=== PATIENT | female | born 1945 | race Caucasian/White ===

== ENCOUNTER 2016-12-10 10:32 | Emergency (ER) | payer MEDICARE, OTHER ==
[2016-12-10 10:51] VITALS: BP 136/88
[2016-12-10] MEDS ORDERED: Acetaminophen 325 MG Tab PO ONE (11:48)
--- NOTE | 2016-12-10 11:50 | EDM.PDOC ---
ED HPI GENERAL MEDICAL PROBLEM - General Chief Complaint: Upper Extremity Injury/Pain Stated Complaint: Right shoulder pain Time Seen by Provider: 12/10/16 11:10 Source of Information: Reports: Patient, RN Notes Reviewed History Limitations: Reports: No Limitations - History of Present Illness INITIAL COMMENTS - FREE TEXT/NARRATIVE: 71 year old female presents to the ED with complaints of right shoulder pain. She had a total shoulder replacement and rotator cuff repair with Dr. Diop on 09/02/16. She was doing well and was discharged from Physical therapy last week. This morning she awoke with right shoulder pain. She has pain with movement. She's had no injury and does not feel she slept on it wrong. She says the shoulder was fine yesterday. She reports full range of motion as of yesterday. She denies fall or overuse. She's been performing exercises per PT recommendations. She has not notified Dr. Diop. She has been taking Tylenol for pain but has not required any for quite some time. Right Shoulder Pain Score (Numeric/FACES): 8 - Related Data Allergies Allergy/AdvReac Type Severity Reaction Status Date / Time No Known Allergies Allergy Verified 12/10/16 10:46 Home Meds: Home Meds Hydrochlorothiazide 25 mg PO DAILY 12/10/16 [History] Losartan [Cozaar] 100 mg PO DAILY 12/10/16 [History] Metoprolol. 25 mg PO DAILY 12/10/16 [History] Montelukast [Singulair] 10 mg PO DAILY 12/10/16 [History] Omeprazole 20 mg PO DAILY 12/10/16 [History] Potassium Chloride 20 meq PO DAILY 12/10/16 [History] Rivaroxaban [Xarelto] 20 mg PO DAILY 12/10/16 [History] Sertraline [Zoloft] 50 mg PO DAILY 12/10/16 [History] atorvaSTATin [Lipitor] 40 mg PO DAILY 12/10/16 [History] traZODone 100 mg PO BEDTIME 12/10/16 [History] Past Medical History Cardiovascular History: Reports: High Cholesterol, Hypertension Respiratory History: Reports: PE Psychiatric History: Reports: Anxiety, Depression - Past Surgical History Musculoskeletal Surgical History: Reports: Shoulder Replacement Social & Family History - Tobacco Use Smoking Status *Q: Never Smoker Review of Systems - Review of Systems Review Of Systems: See Below Constitutional: Reports: No Symptoms. Denies: Chills, Fever Respiratory: Reports: No Symptoms Cardiovascular: Reports: No Symptoms Musculoskeletal: Reports: Shoulder Pain Skin: Reports: No Symptoms. Denies: Erythema Neurological: Reports: No Symptoms. Denies: Numbness, Paresthesia, Tingling, Weakness ED EXAM, GENERAL - Physical Exam Exam: See Below Exam Limited By: No Limitations General Appearance: Alert, WD/WN, No Apparent Distress Respiratory/Chest: No Respiratory Distress Cardiovascular: Regular Rate, Rhythm Extremities: Normal Inspection, Limited Range of Motion (right shoulder ), Other (patient is guarded on exam. She has mild tenderness on palpation of the shoulder joint. No bony point tenderness, no deformity, no erythema. Incision is healed without erythema or sign of infection. ). No: Increased Warmth, Redness Neurological: Alert, Oriented, Normal Cognition, No Motor/Sensory Deficits Skin Exam: Warm, Dry, Intact Course - Vital Signs Last Recorded V/S: Last Vital Signs Temp 97.7 F 12/10/16 10:46 Pulse 53 L 12/10/16 10:46 Resp BP 136/88 12/10/16 10:46 Pulse Ox 97 12/10/16 10:46 - Orders/Labs/Meds Meds: Medications Discontinued Medications Generic Name Dose Route Start Last Admin Trade Name Shaneq PRN Reason Stop Dose Admin Acetaminophen 975 mg 12/10/16 11:48 Tylenol PO 12/10/16 11:49 NOW ONE - Re-Assessments/Exams Free Text/Narrative Re-Assessment/Exam: Patient had no acute injury or fall. I suspect that she slept with the arm in an awkward position, and therefore awoke with pain and inflammation. X-rays are not indicated as she had no acute injury. I was able to speak to her PT team. They had a cancellation and are able to see her at 1:30pm. I sent an order for PT eval and treat since she was discharged from PT last week. I instructed the patient to call Dr. Diop's office and update him as well. Discharge instructions as documented. Departure - Departure Time of Disposition: 11:49 Disposition: Home, Self-Care 01 Condition: Good Clinical Impression: Right shoulder pain Qualifiers: Chronicity: unspecified Qualified Code(s): M25.511 - Pain in right shoulder Status post reverse total shoulder replacement Qualifiers: Laterality: right Qualified Code(s): Z96.611 - Presence of right artificial shoulder joint - Discharge Information Referrals: Tres Spears MD [Primary Care Provider] - Forms: ED Department Discharge Additional Instructions: Rest and apply ice as tolerated Tylenol 1000mg every 8 hours as needed for pain See Physical Therapy at [facility] today at 1:30pm Call Dr. Diop's office to notify him if your shoulder pain
== END 2016-12-10 12:00 | disposition home or self-care (01) ==
LOC: JD.ED 10:32
DX: M25.511 Pain in right shoulder (principal); E78.00 Pure hypercholesterolemia, unspecified; I10 Essential (primary) hypertension; F41.9 Anxiety disorder, unspecified; F32.9 Major depressive disorder, single episode, unspecified; Z79.899 Other long term (current) drug therapy; Z96.611 Presence of right artificial shoulder joint
CPT/HCPCS: 99283; A9270; 99282

== ENCOUNTER 2019-11-20 14:04 | Emergency (ER) | payer MEDICARE, OTHER ==
[2019-11-20] MEDS ORDERED: HYDROmorphone 1 MG/ML Syringe IVPUSH ONE (14:18)
[2019-11-20] MEDS ORDERED: Ondansetron 4 MG/2 ML SDV IVPUSH ONE (14:18)
--- NOTE | 2019-11-20 14:23 | EDM.PDOC ---
ED HPI GENERAL MEDICAL PROBLEM - General Chief Complaint: Trauma Stated Complaint: [facility] Time Seen by Provider: 11/20/19 14:08 Source of Information: Reports: Patient, EMS History Limitations: Reports: No Limitations - History of Present Illness INITIAL COMMENTS - FREE TEXT/NARRATIVE: 73-year-old female presents to the ED per [facility] after tripping and falling at home in the garage. She states she landed hard on outstretched left hand injuring her left wrist and proximal left humerus shoulder area. She denies hitting her head or losing consciousness. She denies any pain in her rib cage or back. She has bilateral prosthetic knees and landed hard on her right knee which is markedly contused and swollen. Minimal abrasions to the left knee which also is a prosthetic knee. She does not have prosthetic hips. She has had previous rotator cuff surgery on the left shoulder. He is able to weight- bear and walk after injury. However her right knee is becoming much more swollen since time of injury. Of note the patient is on Xarelto. Estimated time of fall was approximately an hour ago. He has not eaten since last evening. Of note patient is left-hand dominant. Onset: Today, Sudden Onset Date: 11/20/19 Onset Time: 13:05 Duration: Minutes:, Getting Worse (Creasing pain left humerus and right knee.) Location: Reports: Upper Extremity, Left (Pain left midshaft and proximal humerus. Still some mild pain on firm compression of the left wrist.), Lower Extremity, Right (Blunt trauma to the right knee from direct blow onto the concrete of the garage floor. Knee is prosthetic. Markedly swollen and ecchymotic.). Denies: Head, Face, Neck, Chest, Abdomen, Back, Pelvis Quality: Reports: Ache, Throbbing Severity: Moderate Improves with: Reports: Rest (8 out of 10) Worsens with: Reports: Movement (Worse with any movement of the left upper extremity. She arrives in a left arm sling.) Context: Reports: Trauma (Tripped and fell over a steel broom on the stairs entering her garage.). 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 25 mg PO DAILY 12/10/16 [History] Montelukast [Singulair] 10 mg PO DAILY 12/10/16 [History] Omeprazole 20 mg PO DAILY 12/10/16 [History] Potassium Chloride 20 meq PO DAILY 12/10/16 [History] Rivaroxaban [Xarelto] 20 mg PO DAILY 12/10/16 [History] Sertraline [Zoloft] 50 mg PO DAILY 12/10/16 [History] atorvaSTATin [Lipitor] 40 mg PO DAILY 12/10/16 [History] traZODone 100 mg PO BEDTIME 12/10/16 [History] oxyCODONE HCl/Acetaminophen [Percocet 5-325 mg Tablet] 1 - 2 each PO Q4H PRN #20 tablet 11/20/19 [Rx] polyethylene glycoL 3350 [MiraLAX] 17 gm PO DAILY #1 container 11/20/19 [Rx] Past Medical History Cardiovascular History: Reports: High Cholesterol, Hypertension Respiratory History: Reports: PE Psychiatric History: Reports: Anxiety, Depression - Past Surgical History Musculoskeletal Surgical History: Reports: Shoulder Replacement Social & Family History - Living Situation & Occupation Living situation: Reports: Occupation: Retired Review of Systems - Review of Systems Review Of Systems: See Below Constitutional: Reports: No Symptoms Eyes: Reports: Glasses Ears: Reports: No Symptoms Nose: Reports: No Symptoms Mouth/Throat: Reports: No Symptoms Respiratory: Reports: No Symptoms Cardiovascular: Reports: Other GI/Abdominal: Reports: No Symptoms Genitourinary: Reports: Other (Urinary frequency some mild urge and stress incontinence.) Musculoskeletal: Reports: Shoulder Pain (Left rotator cuff surgery on her shoulder.), Back Pain, Joint Pain (Had both knees replaced. Does have arthritis in both hips. Occasional cervical neck pain.) Skin: Reports: Bruising Neurological: Reports: No Symptoms Psychiatric: Reports: No Symptoms (Uses fairly easily.) ED EXAM, GENERAL - Physical Exam Exam: See Below Exam Limited By: No Limitations General Appearance: Alert, WD/WN, Mild Distress, Other Eye Exam: Bilateral Eye: Normal Inspection, PERRL Throat/Mouth: Normal Inspection, Normal Lips, Normal Teeth, Normal Oropharynx, Other (No trauma to the tongue or dentition.) Head: Atraumatic, Normocephalic, Other (No outward signs of any head or facial trauma.) Neck: Normal Inspection, Supple, Non-Tender, Full Range of Motion. No: Carotid Bruit, Lymphadenopathy (L), Lymphadenopathy (R) Respiratory/Chest: No Respiratory Distress, Lungs Clear, Normal Breath Sounds, No Accessory Muscle Use, Chest Non-Tender, Other (Slight tenderness to compression of mid lateral ribs on the left side. No subcutaneous emphysema) Cardiovascular: Regular Rate, Rhythm, No Edema, No Gallop, No Murmur, No Rub Peripheral Pulses: 2+: Carotid (L), Carotid (R), Posterior Tibial (L), Posterior Tibial (R), Dorsalis Pedis (L), Dorsalis Pedis (R) GI/Abdominal: Normal Bowel Sounds, Soft, Non-Tender, No Organomegaly, No Abnormal Bruit, No Mass, Pelvis Stable, Other (Previous appendectomy scar) Back Exam: Normal Inspection, Full Range of Motion, Other (Increased lordotic curvature lumbar spine but no tenderness on palpation of the thoracic or lumbar spine. There is no contusions abrasions to her back.). No: CVA Tenderness (L), CVA Tenderness (R) Extremities: Other (Patient has no obvious injuries to her right upper extremity. On the left side she has pain on firm compression of her wrist particular of the scaphoid bone. She does however have pretty well near normal pronation supination at the elbow. She is unable to abduct the arm from the shoulder. She has pain at the proximal and midshaft of the left humerus. No obvious significant swelling. On the lower extremity she has significant hematoma developing over the right anterior knee which is been replaced. Patella appears to be intact clinically. She has minimal abrasions over the left anterior knee which is also a prosthetic knee and full range of motion. She has decreased internal/external rotation of both hips compatible with osteoarthritic changes. No pain in the pelvis appreciated no healed surgical scar left anterior shoulder from rotator cuff repair.) Neurological: Alert, Oriented, CN II-XII Intact, Normal Cognition, Normal Gait Psychiatric: Normal Affect, Normal Mood Skin Exam: Warm, Dry, Intact, Normal Color, Other (Eliud erythema and mild abrasions over the anterior) Course - Vital Signs Text/Narrative:: 73-year-old female presents to the ED per [facility] after getting tripped up and falling in her garage at home at about 1300 hrs. today. She landed hard on her right knee and her left shoulder. She denies hitting her hea d or losing consciousness. Examination reveals pain in the proximal aspect of her left humerus and left wrist on exam. She has swelling hematoma formation over the right anterior knee minimal abrasions left knee. Clinically no fractures in the left lower extremity or right upper extremity. X-rays of the right knee will be obtained to make sure she did not fracture her patella. She will require x-rays of the left forearm and the left humerus. Current pain rated is 8 out of 10. IV will be D5 normal saline at 150 mils per hour. She has not eaten since yesterday. Given Dilaudid 1 mg IV with Zofran 4 mg IV for pain relief. Last Recorded V/S: Last Vital Signs Temp 37.1 C 11/20/19 14:09 Pulse 70 11/20/19 16:30 Resp 20 11/20/19 14:09 BP 140/80 11/20/19 16:30 Pulse Ox 100 11/20/19 16:30 - Orders/Labs/Meds Orders: Active Orders 24 hr Category Date Time Status Shoulder wo Cont Lt [CT] Stat Exams 11/20/19 15:26 Taken Durable Medical Equipment for Discharge [DME for Oth 11/20/19 16:01 Ordered Discharge] [COMM] Stat Meds: Medications Discontinued Medications Generic Name Dose Route Start Last Admin Trade Name Freq PRN Reason Stop Dose Admin Hydromorphone HCl 1 mg 11/20/19 14:18 11/20/19 14:45 Dilaudid IVPUSH 11/20/19 14:19 1 mg ONETIME ONE Administration Dextrose/Sodium Chloride 1,000 mls @ 150 mls/hr 11/20/19 14:30 11/20/19 14:44 Dextrose 5%-Normal Saline IV 150 mls/hr ASDIRECTED KALEB Administration Ondansetron HCl 4 mg 11/20/19 14:18 11/20/19 14:45 Zofran IVPUSH 11/20/19 14:19 4 mg ONETIME ONE Administration - Radiology Interpretation Free Text/Narrative:: 73-year-old female presents to the ED per [facility] after tripping and falling in her garage at home. She landed on her outstretched left hand injuring her left wrist and proximal left humerus. She arrives with a sling on the left arm. She also fell with direct blow to the right knee which is prosthetic knee and it is marked hematoma formation and swelling. Of note the patient is apparently still on Xarelto daily. She has minimal abrasions to the left knee which also is prosthetic. No evidence of hip or pelvic fractures. No clear evidence of significant injury to the chest wall or abdomen. Patient will be having x-rays of the left humerus left forearm and right knee performed. IV is D5 normal saline at 150 mils per hour. Given Dilaudid 1 mg IV for and Zofran 4 mg IV for nausea and pain relief. Currently she rates her pain is 8 out of 10. - Re-Assessments/Exams Free Text/Narrative Re-Assessment/Exam: 11/20/19 15:27 rays of the left knee reveal no fracture of the patella soft tissue hematoma appreciated. Right knee prosthesis is intact. X-ray of the left forearm reveals marked osteopenia. There is widening of the distance between the lunate bone and the navicular bone felt to be due to degenerative arthritic change. Severe joint space narrowing is noted between the distal radius and lunate bone as well. Mild deformity of the distal left radius is seen most likely relating to an old fracture. Slightly sclerotic distal radius is seen through the metaphysis and difficult to exclude a minimally impacted acute fracture no acute fracture is obvious. Trays of the left shoulder reveal a suspect fracture at the surgical neck with slight impaction. No axillary view was obtained and it appears that the shoulder may be slightly anterior dislocated as I cannot visualize any portion of the glenoid. This may be positional however. CT of the shoulder will be done to confirm. 11/20/19 15:56 CT of the shoulder has been completed and reveals that there is a impacted fracture of the surgical neck of the humerus. There is slight retroflexion of the fractured fragment but it is in normal alignment with the glenoid process. Patient will be treated with a sling and swath for the next 3 weeks. I will have her follow-up with Dr. Obando- orthopedic surgeon in the clinic in the next 10 to 12 days and then follow her along to make sure it heals and then get her into a physiotherapy program. I am going to place her on Percocet tabs 5/325 mg 1 or 2 every 4-6 hours necessary for pain relief for the next 3 to 5 days. The shoulder capsule is like to swell significantly since she is on Xarelto. I did firmly compress her left wrist and carpal bones and there is no significant swelling or hematoma development and minimal pain suggesting changes seen on x-ray are that of old fracture distal radius. Departure - Departure Time of Disposition: 16:25 Disposition: Home, Self-Care 01 Condition: Fair Clinical Impression: Fall as cause of accidental injury at home as place of occurrence Qualifiers: Encounter type: initial encounter Qualified Code(s): W19.XXXA - Unspecified fall, initial encounter Contusion of knee, right Qualifiers: Encounter type: initial encounter Qualified Code(s): S80.01XA - Contusion of right knee, initial encounter Fracture of proximal humerus Qualifiers: Encounter type: initial encounter Fracture type: closed Fracture morphology: unspecified fracture morphology Laterality: left Qualified Code(s): S42.202A - Unspecified fracture of upper end of left humerus, initial encounter for closed fracture - Discharge Information *PRESCRIPTION DRUG MONITORING PROGRAM REVIEWED*: Not Applicable *COPY OF PRESCRIPTION DRUG MONITORING REPORT IN PATIENT LIZETTE: Not Applicable Prescriptions: polyethylene glycoL 3350 [MiraLAX] 17 gm PO DAILY #1 container oxyCODONE HCl/Acetaminophen [Percocet 5-325 mg Tablet] 1 - 2 each PO Q4H PRN #20 tablet PRN Reason: pain relief. Instructions: Humerus Fracture Treated With Immobilization, [id number] Referrals: PCP,None [Primary Care Provider] - Forms: ED Department Discharge Additional Instructions: Evaluation in the emergency room today in regards to a trip and fall in the garage at home today. You landed on outstretched left hand and your right knee. Right knee is suffered contusion and significant bruising and swelling but no fractures were identified on x-rays and your knee prosthesis is in good position. Injuries to the left upper extremity involve contusion sprain to the left wrist and carpal bones but no fractures. X-rays of the left humerus or shoulder area revealed a impaction fracture of the proximal humerus or fracture in this area. Alignment is good. Treatment is to immobilize the left arm in a sling and swath for the next 3 weeks. Ice pack to the area 1/2-hour out of every 4 hours today and tomorrow. After that may apply heat to the area and a similar fashion. Suggest Percocet tabs 5/325 mg 1 tablet every 4-6 hours as necessary for pain relief. Suggest MiraLAX powder 17 g or 1 scoop daily while on the strong pain medication to prevent constipation from occurring. You will need follow-up with orthopedic surgeon. Suggest follow-up with Dr. Obando-- [place]opedic surgeon [place] [facility] [place] [facility]. Please call [phone] to arrange an appointment in about 10 to 12 days time. Level with personal care physician in the interim if any further problems occur. Pack to the right knee 1/2-hour out of every 4 hours for the next couple of days as well. Sepsis Event Note (ED) - Focused Exam Vital Signs: Vital Signs Temp Pulse Resp BP Pulse Ox 11/20/19 16:30 70 140/80 100 11/20/19 16:28 73 134/70 100 11/20/19 14:09 37.1 C 70 20 147/115 H 98 - My Orders Last 24 Hours: My Active Orders 11/20/19 15:26 Shoulder wo Cont Lt [CT] Stat 11/20/19 16:01 Durable Medical Equipment for Discharge [DME for Discharge] [COMM] Stat - Assessment/Plan Last 24 Hours: My Active Orders 11/20/19 15:26 Shoulder wo Cont Lt [CT] Stat 11/20/19 16:01 Durable Medical Equipment for Discharge [DME for Discharge] [COMM] Stat
[2019-11-20] MEDS ORDERED: Dextrose 5%-0.9% NaCl 1,000 ML IV SCH (14:30)
--- NOTE | 2019-11-20 15:17 | CR ---
Right knee: AP and crosstable lateral views of the right knee were obtained. Encampment patellar view was also obtained. Knee prosthesis is seen. Components are aligned. Vascular calcification is seen. No acute fracture or other abnormality is appreciated. Impression: 1. Right knee prosthesis. 2. Nothing acute is appreciated. Diagnostic code #2 Study was dictated in MDT
--- NOTE | 2019-11-20 15:17 | CR ---
Left forearm: 2 views of the left forearm were obtained. Comparison: No previous study. Widening of the distance between the lunate bone and navicular bone is seen. Severe joint space narrowing is noted between the distal radius and lunate bone. Mild deformity of distal left radius is seen most likely relating to old fracture. Bony structures are slightly osteopenic. Slightly sclerotic distal radius is seen through the metaphysis and difficult to exclude minimally impacted acute fracture. No other acute fracture is seen. Impression: 1. Degenerative change within the wrist as described above. 2. Questionable sclerosis within the distal metaphysis of the radius and difficult to exclude minimally impacted acute fracture. Please correlate with the patient's symptoms. 3. No other acute finding is seen. Diagnostic code #3 Study was dictated in MDT
--- NOTE | 2019-11-20 15:22 | CR ---
Left humerus: 2 views left humerus are obtained. Surgical neck fracture appears to be present. Osteopenia is noted. No additional abnormality is appreciated. Impression: 1. Surgical neck fracture within the proximal left humerus. Diagnostic code #3 Study was dictated in MDT
[2019-11-20 16:31] VITALS: BP 140/80; PULSE 70
--- NOTE | 2019-11-21 08:35 | CT ---
CT left shoulder Technique: Multiple axial sections through the left shoulder were obtained. Reconstructed coronal and sagittal images were obtained. Findings: Surgical neck fracture is seen with slight impaction. Small fracture is noted involving the base of the greater tuberosity. Glenohumeral joint is slightly narrowed. Acromioclavicular joint appears within normal limits. No additional fracture is appreciated. Impression: 1. Fracture within the proximal humerus as described above. 2. Mild joint space narrowing within the glenohumeral joint. Diagnostic code #3 Study was dictated in MDT MTDD
== END 2019-11-20 16:33 | disposition home or self-care (01) ==
LOC: JD.ED 14:04
DX: S42.212A Unspecified displaced fracture of surgical neck of left humerus, initial encounter for closed fracture (principal); S80.01XA Contusion of right knee, initial encounter; E78.00 Pure hypercholesterolemia, unspecified; I10 Essential (primary) hypertension; F41.9 Anxiety disorder, unspecified; F32.9 Major depressive disorder, single episode, unspecified; Z79.01 Long term (current) use of anticoagulants; Z86.711 Personal history of pulmonary embolism; Z79.899 Other long term (current) drug therapy; W01.0XXA Fall on same level from slipping, tripping and stumbling without subsequent striking against object, initial encounter; Y92.009 Unspecified place in unspecified non-institutional (private) residence as the place of occurrence of the external cause
CPT/HCPCS: 73060; 73090; 73200; 73562; 96374; 96375; 99284; J1170; J2405; J7042

== ENCOUNTER 2021-08-29 10:13 | Emergency (ER) | payer SELFPAY ==
[2021-08-29 10:32] VITALS: BP 147/76; PULSE 74
== END 2021-08-29 10:47 ==
LOC: JD.ED 10:13 → MERGE 10:13 → JD.ED 10:47
DX: Z53.21 Procedure and treatment not carried out due to patient leaving prior to being seen by health care provider (principal)

== ENCOUNTER 2022-03-25 13:11 | Inpatient (IN) | payer MEDICARE, OTHER ==
[2022-03-25] MEDS ORDERED: Sodium Chloride 0.9% 10 ML Syringe FLUSH PRN (13:14)
[2022-03-25 14:21] LABS: ESTIMATED GFR 75 mL/min (>60)
[2022-03-25] MEDS ORDERED: cefTRIAXone 2 GM in Sodium Chloride 0.9% 100 ML IV ONE (17:32)
[2022-03-25] MEDS ORDERED: Potassium Chloride 20 MEQ Tab.ER PO ONE (18:09)
[2022-03-25] MEDS ORDERED: cefTRIAXone 1 GM in Sodium Chloride 0.9% 100 ML IV SCH (18:30)
[2022-03-25] MEDS: Heparin Sodium 5,000 Units/ML Vial SUBCUT SCH (19:00)
[2022-03-26] MEDS: Heparin Sodium 5,000 Units/ML Vial SUBCUT SCH ×2 (02:44→10:23)
[2022-03-26] MEDS ORDERED: Potassium Chloride 20 MEQ Tab.ER PO ONE (08:39)
[2022-03-26] MEDS ORDERED: Ondansetron 4 MG Tab.DIS PO PRN (10:11)
[2022-03-26] MEDS ORDERED: Acetaminophen 325 MG Tab PO PRN (10:11)
[2022-03-26] MEDS: Losartan 50 MG Tab PO SCH (12:22)
[2022-03-26] MEDS: Hydrochlorothiazide 12.5 MG Cap PO SCH (12:22)
[2022-03-26] MEDS: Memantine 10 MG Tab PO SCH ×2 (12:22→20:28)
[2022-03-26] MEDS: Pantoprazole 40 MG Tab.CR PO SCH (12:23)
[2022-03-26] MEDS: Cefdinir 300 MG Cap PO SCH ×2 (12:23→20:28)
[2022-03-26] MEDS: Sertraline 50 MG Tab PO SCH (12:23)
[2022-03-26] MEDS: Rivaroxaban 10 MG Tab PO SCH (17:51)
[2022-03-26] MEDS: Potassium Chloride 10 MEQ Tab.ER PO SCH (20:28)
[2022-03-27] MEDS: Memantine 10 MG Tab PO SCH ×2 (08:30→23:16)
[2022-03-27] MEDS: Potassium Chloride 10 MEQ Tab.ER PO SCH ×2 (08:30→23:15)
[2022-03-27] MEDS: Saccharomyces Boulardii (Probiotic) 250 MG Cap PO SCH (08:31)
[2022-03-27] MEDS: Losartan 50 MG Tab PO SCH (08:31)
[2022-03-27] MEDS: atorvaSTATin 20 MG Tab PO SCH (08:31)
[2022-03-27] MEDS: Sertraline 50 MG Tab PO SCH (08:44)
[2022-03-27] MEDS: Hydrochlorothiazide 12.5 MG Cap PO SCH (08:44)
[2022-03-27] MEDS: Pantoprazole 40 MG Tab.CR PO SCH (08:44)
[2022-03-27] MEDS: Cefdinir 300 MG Cap PO SCH ×2 (08:47→23:15)
[2022-03-27] MEDS: Rivaroxaban 10 MG Tab PO SCH (17:48)
[2022-03-28] MEDS: Memantine 10 MG Tab PO SCH ×2 (10:22→22:33)
[2022-03-28] MEDS: Hydrochlorothiazide 12.5 MG Cap PO SCH (10:23)
[2022-03-28] MEDS: Saccharomyces Boulardii (Probiotic) 250 MG Cap PO SCH (10:23)
[2022-03-28] MEDS: Potassium Chloride 10 MEQ Tab.ER PO SCH ×2 (10:23→22:33)
[2022-03-28] MEDS: Sertraline 50 MG Tab PO SCH (10:24)
[2022-03-28] MEDS: atorvaSTATin 20 MG Tab PO SCH (10:24)
[2022-03-28] MEDS: Pantoprazole 40 MG Tab.CR PO SCH (10:24)
[2022-03-28] MEDS: Cefdinir 300 MG Cap PO SCH ×2 (10:24→22:33)
[2022-03-28] MEDS: Losartan 50 MG Tab PO SCH (10:25)
[2022-03-28] MEDS: Rivaroxaban 10 MG Tab PO SCH (17:41)
[2022-03-29] MEDS: Memantine 10 MG Tab PO SCH ×2 (10:15→22:27)
[2022-03-29] MEDS: Pantoprazole 40 MG Tab.CR PO SCH (10:16)
[2022-03-29] MEDS: Saccharomyces Boulardii (Probiotic) 250 MG Cap PO SCH (10:16)
[2022-03-29] MEDS: Cefdinir 300 MG Cap PO SCH ×2 (10:16→22:26)
[2022-03-29] MEDS: atorvaSTATin 20 MG Tab PO SCH (10:16)
[2022-03-29] MEDS: Losartan 50 MG Tab PO SCH (10:16)
[2022-03-29] MEDS: Sertraline 50 MG Tab PO SCH (10:17)
[2022-03-29] MEDS: Potassium Chloride 10 MEQ Tab.ER PO SCH ×2 (10:17→22:26)
[2022-03-29] MEDS: Hydrochlorothiazide 12.5 MG Cap PO SCH (10:17)
[2022-03-29] MEDS: Rivaroxaban 10 MG Tab PO SCH (17:45)
[2022-03-30] MEDS: Pantoprazole 40 MG Tab.CR PO SCH (09:28)
[2022-03-30] MEDS: Losartan 50 MG Tab PO SCH (09:28)
[2022-03-30] MEDS: Hydrochlorothiazide 12.5 MG Cap PO SCH (09:28)
[2022-03-30] MEDS: Sertraline 50 MG Tab PO SCH (09:28)
[2022-03-30] MEDS: atorvaSTATin 20 MG Tab PO SCH (09:28)
[2022-03-30] MEDS: Potassium Chloride 10 MEQ Tab.ER PO SCH (09:28)
[2022-03-30 09:29] VITALS: BP 116/69
[2022-03-30] MEDS: Saccharomyces Boulardii (Probiotic) 250 MG Cap PO SCH (09:29)
[2022-03-30] MEDS: Memantine 10 MG Tab PO SCH (09:29)
[2022-03-30 10:49] VITALS: PULSE 75
== END 2022-03-30 15:04 | disposition home or self-care (01) | DRG 884 ==
LOC: JD.ED 13:11 → JD.MS 18:15 → OBSVTOIN 03-26 11:19
PROVIDERS: ADMIT Hospitalist; ATTEND Hospitalist
DX: N30.00 Acute cystitis without hematuria (principal); F03.B18 Unspecified dementia, moderate, with other behavioral disturbance; N30.01 Acute cystitis with hematuria; Z86.711 Personal history of pulmonary embolism; Z79.899 Other long term (current) drug therapy; E78.5 Hyperlipidemia, unspecified; F32.89 Other specified depressive episodes; F41.9 Anxiety disorder, unspecified; E78.00 Pure hypercholesterolemia, unspecified; I10 Essential (primary) hypertension; Z96.619 Presence of unspecified artificial shoulder joint; Z90.49 Acquired absence of other specified parts of digestive tract
CPT/HCPCS: 36415 ×2; 70450; 71045; 80048; 80053; 81001; 84484; 85025; 87086; 93005; 96365; 99285; A9270 ×2; J0696; J1644 ×3; J3490; 83735; 86140; 97116-GP; 97162-GP

== ENCOUNTER 2022-09-04 11:28 | Emergency (ER) | payer MEDICARE, OTHER ==
[2022-09-04] MEDS ORDERED: Sodium Chloride 0.9% 10 ML Syringe FLUSH PRN (12:39)
[2022-09-04 12:59] LABS: APPEARANCE,URINE CLEAR (Clear); BILIRUBIN,URINE NEGATIVE (Negative); COLOR,URINE DARK YELLOW (Yellow); GLUCOSE,URINE NEGATIVE (Negative); KETONES,URINE TRACE (Negative); LEUKOCYTE ESTERASE,URINE 2+ (Negative); NITRITE,URINE NEGATIVE (Negative); OCCULT BLOOD,URINE TRACE-INTACT (Negative); PROTEIN,URINE NEGATIVE (Negative); UROBILINOGEN,URINE 0.2 (0.2-1.0)
[2022-09-04 13:01] LABS: BASOPHILS ABSOLUTE AUTO 0.05 K/mm3 (0.01-0.08); BASOPHILS PERCENT AUTO 0.7 % (0.1-1.2); EOSINOPHILS ABSOLUTE AUTO 0.07 K/mm3 (0.04-0.36); EOSINOPHILS PERCENT AUTO 0.9 (0.7-5.8); HEMOGLOBIN 14.5 gm/dl (11.2-15.7); IMMATURE GRAN ABSOLUTE AUTO 0.02 K/mm3 (0.00-0.10); IMMATURE GRAN PERCENT AUTO 0.3 % (<=1.0); LYMPHOCYTES ABSOLUTE AUTO 1.74 K/mm3 (1.18-3.74); LYMPHOCYTES PERCENT AUTO 23.2 % (19.3-51.7); MEAN CORPUSCULAR HEMOGLOBIN 28.9 pg (25.6-32.2); MEAN CORPUSCULAR HGB CONC 33.7 g/dl (32.2-35.5); MEAN CORPUSCULAR VOLUME 85.8 fl (79.4-94.8); MEAN PLATELET VOLUME 9.6 fl (9.4-12.3); MONOCYTES ABSOLUTE AUTO 0.72 K/mm3 (0.24-0.36); MONOCYTES PERCENT AUTO 9.6 % (4.7-12.5); NEUTROPHILS ABSOLUTE AUTO 4.91 K/mm3 (1.56-6.13); NEUTROPHILS PERCENT AUTO 65.3 % (34.0-71.1); PLATELET COUNT,PLT 273 K/mm3 (182-369); RED BLOOD CELL COUNT 5.01 M/mm3 (3.98-5.22); WHITE BLOOD CELL COUNT,WBC 7.51 K/mm3 (3.98-10.04)
[2022-09-04 13:10] LABS: BACTERIA,URINE FEW /hpf (FEW); EPITHELIAL CELLS,URINE 0-5 /hpf (0-5); MUCUS,URINE FEW /hpf (FEW)
[2022-09-04 13:22] LABS: A/G RATIO 1.4 (1-2); ALANINE AMINOTRANSFERASE,ALT 23 U/L (14-59); ALKALINE PHOSPHATASE 79 U/L (46-116); ANION GAP 12.2 (5-15); ASPARTATE AMNIOTRANSFERASE,AST 20 U/L (15-37); BILIRUBIN TOTAL 0.8 mg/dL (0.2-1.0); BLOOD UREA NITROGEN,BUN 16 mg/dL (7-18); C-REACTIVE PROTEIN <0.2 mg/dL (<1.0); CALCIUM 9.5 mg/dL (8.5-10.1); CARBON DIOXIDE,CO2 27 mEq/L (21-32); CHLORIDE,CL 107 mEq/L (98-107); ESTIMATED GFR 58 mL/min (>60); GLUCOSE RANDOM 93 mg/dL (70-99); POTASSIUM,K 4.2 mEq/L (3.5-5.1); PROTEIN TOTAL,TP 6.9 g/dl (6.4-8.2); SODIUM,NA 142 mEq/L (136-145)
[2022-09-04 15:38] VITALS: BP 157/95; PULSE 67
== END 2022-09-04 14:18 | disposition home or self-care (01) ==
LOC: JD.ED 11:28
DX: N39.0 Urinary tract infection, site not specified (principal); I10 Essential (primary) hypertension; Z86.711 Personal history of pulmonary embolism; Z88.8 Allergy status to other drugs, medicaments and biological substances; Z79.01 Long term (current) use of anticoagulants; Z79.899 Other long term (current) drug therapy
CPT/HCPCS: 36415; 80053; 81001; 85025; 86140; 87086; 99283